=== PATIENT | male | born 1955 | race Hispanic/Latino ===

== ENCOUNTER 2023-09-11 22:07 | Emergency (ER) | payer OTHER ==
[2023-09-11 23:39] LABS: Specific Gravity 1.011 (1.005-1.030); Sqamous Epithelial None Seen /HPF (None Seen); Transitional Epithelial <5 /HPF (None Seen); Urine Bacteria <20 /HPF (<20); Urine Bilirubin NEGATIVE (Negative); Urine Blood Trace (Negative); Urine Clarity Clear (Clear); Urine Color Colorless (Yellow); Urine Culture Reflex Order NOT NEEDED; Urine Glucose NEGATIVE (Negative); Urine Ketones NEGATIVE (Negative); Urine Micro Reflex YN NO BILL MICROSCOPIC; Urine Mucus Slight /HPF (None Seen); Urine Nitrite NEGATIVE (Negative); Urine Protein NEGATIVE (Negative); Urine RBC <5 /HPF (None Seen); Urine Urobilinogen Normal (Normal); Urine WBC <5 /HPF (<5)
--- NOTE | 2023-09-11 23:42 | ER ---
Nurse's Notes [facility] Name: Pan Cai Age: 68 yrs Sex: Male : 1955 Arrival Date: 09/11/2023 Time: 22:07 Bed 6 Private MD: Diagnosis: Retention of urine, unspecified Presentation: 09/10 22:31 Chief complaint: Patient's son or daughter states: Has not been able to pee all day, in vc1 pain and feels like his " bladder is busting". Coronavirus screen: Vaccine status: Patient reports receiving the 2nd dose of the covid vaccine. plus 1 booster Client denies travel out of the [place] in the last 14 days. At this time, the client does not indicate any symptoms associated with coronavirus-19. Ebola Screen: Patient negative for fever greater than or equal to 101.5 degrees Fahrenheit, and additional compatible Ebola Virus Disease symptoms Patient denies exposure to infectious person. Patient denies travel to an Ebola-affected area in the 21 days before illness onset. No symptoms or risks identified at this time. Initial Sepsis Screen: Does the patient meet any 2 criteria? No. Patient's initial sepsis screen is negative. Does the patient have a suspected source of infection? No. Patient's initial sepsis screen is negative. Risk Assessment: Do you want to hurt yourself or someone else? Patient reports no desire to harm self or others. Onset of symptoms was September 11, 2023. Care prior to arrival: None. Activity prior to arrival: None. Mechanism of Injury: No Mechanism of Injury. Transition of care: patient was not received from another setting of care. 22:31 Method Of Arrival: Ambulatory vc1 22:31 Acuity: SIXTO 4 vc1 Triage Assessment: 22:36 General: Appears in no apparent distress. uncomfortable, slender, well groomed, well vc1 developed, well nourished, Behavior is anxious, restless. Pain: Complains of pain in suprapubic area Pain does not radiate. Pain currently is 10 out of 10 on a pain scale. Quality of pain is described as pressure, sharp, Pain began suddenly, Is continuous, Noted to be restless. EENT: No deficits noted. No signs and/or symptoms were reported regarding the EENT system. Neuro: Level of Consciousness is awake, alert, obeys commands, Oriented to person, place, time, situation, Appropriate for age. Cardiovascular: No deficits noted. Respiratory: Airway is patent Respiratory effort is even, unlabored, Respiratory pattern is regular, symmetrical. : Reports inability to void, since this morning pain in suprapubic area with urination, Pain is 10 out of 10 on a pain scale. urgency. Derm: Skin is intact, is healthy with good turgor, Skin is dry, Skin is normal, Skin temperature is warm. Historical: - Allergies: 22:34 No Known Allergies; vc1 - Home Meds: 22:34 tamsulosin 0.4 mg oral capsule [Active]; Lisinopril Oral [Active]; vc1 - PMHx: 22:34 Hypertensive disorder; enlarged prostate; vc1 - PSHx: 22:34 None; vc1 - Immunization history:: Client reports receiving the 2nd dose of the Covid vaccine, Pneumococcal vaccine is up to date. - Infectious Disease History:: Denies. - Social history:: Smoking status: Patient denies any tobacco usage or history of. Screenin:38 [facility] ED Fall Risk Assessment (Adult) History of falling in the last 3 months, vc1 including since admission No falls in past 3 months (0 pts) Confusion or Disorientation No (0 pts) Intoxicated or Sedated No (0 pts) Impaired Gait No (0 pts) Mobility Assist Device Used No (0 pt) Altered Elimination No (0 pt) Score/Fall Risk Level 0 - 2 = Low Risk Oriented to surroundings, Maintained a safe environment, Educated pt \\T\\ family on fall prevention, incl call for assistance when getting out of bed. Abuse screen: Denies threats or abuse. Nutritional screening: No deficits noted. Tuberculosis screening: No symptoms or risk factors identified. Assessment: 23:57 General: Appears in no apparent distress. Behavior is calm, cooperative. Neuro: Level kd3 of Consciousness is awake, alert, obeys commands, Oriented to person, place, time, situation. Respiratory: Airway is patent Trachea midline Respiratory effort is even, unlabored, Respiratory pattern is regular, symmetrical. Vital Signs: 22:31 Weight 65.77 kg; Height 5 ft. 5 in. ; Pain 10/10; vc1 23:43 BP 102 / 65; Pulse 74; Pulse Ox 97% ; ec2 23:57 BP 111 / 67; Pulse 88; Resp 16; Pulse Ox 98% on R/A; kd3 22:31 Body Mass Index 24.13 (65.77 kg, 165.1 cm) vc1 22:31 Pain Scale: Adult vc1 ED Course: 22:09 Patient arrived in ED. jj6 22:10 Alexei Enriquez MD is Attending Physician. ec2 22:34 Triage completed. vc1 22:39 Patient has correct armband on for positive identification. Placed in gown. Bed in low vc1 position. Adult w/ patient. 23:57 Katia Cardozo, RN is Primary Nurse. kd3 23:58 Provided Education on: Verde care . kd3 23:58 Arm band placed on. kd3 23:58 No provider procedures requiring assistance completed. Patient did not have IV access kd3 during this emergency room visit. Administered Medications: No medications were administered Medication: 23:58 VIS not applicable for this client. kd3 Outcome: 23:41 Discharge ordered by . ec2 23:58 Discharged to home ambulatory, kd3 23:58 Condition: stable 23:58 Discharge instructions given to patient, family, Instructed on discharge instructions, follow up and referral plans. Demonstrated understanding of instructions, follow-up care, 23:59 Patient left the ED. kd3 Signatures: Linn Edwards jj6 Katia Cardozo, MAURILIO THORPE kd3 Carlie Arriaga RN RN vc1 Alexei Enriquez MD MD ec2
--- NOTE | 2023-09-11 23:42 | EDPHYS ---
Physician Documentation [facility] Name: Pan Cai Age: 68 yrs Sex: Male : 1955 Arrival Date: 09/11/2023 Time: 22:07 Bed 6 Private MD: ED Physician Alexei Enriquez HPI: 09/10 22:21 This 68 yrs old Male presents to ER via Unassigned with complaints of Urinary ec2 Retention, Pelvic Pain. 22:21 Patient arrives today for evaluation of suprapubic pain and distention, states that he ec2 has had a history of enlarged prostate, state he is unable to void today. Patient reports no fevers or chills, no back pain, no nausea or vomiting.. Historical: - Allergies: 22:34 No Known Allergies; vc1 - Home Meds: 22:34 tamsulosin 0.4 mg oral capsule [Active]; Lisinopril Oral [Active]; vc1 - PMHx: 22:34 Hypertensive disorder; enlarged prostate; vc1 - PSHx: 22:34 None; vc1 - Immunization history:: Client reports receiving the 2nd dose of the Covid vaccine, Pneumococcal vaccine is up to date. - Infectious Disease History:: Denies. - Social history:: Smoking status: Patient denies any tobacco usage or history of. ROS: 22:21 Constitutional: as per hpi ec2 Exam: 22:21 Constitutional: GEN: NAD Head: atraumatic Eyes: EOMI Ears: External ears are ec2 normal. CV: regular rate LUNGS: no respiratory distress ABD: non-distended, soft, minimally tender in the suprapubic region, no guarding, not rigid. SKIN: no evidence of rashes MSK: no evidence of trauma NEURO: moves all extremities equally Vital Signs: 22:31 Weight 65.77 kg; Height 5 ft. 5 in. ; Pain 10/10; vc1 23:43 BP 102 / 65; Pulse 74; Pulse Ox 97% ; ec2 23:57 BP 111 / 67; Pulse 88; Resp 16; Pulse Ox 98% on R/A; kd3 22:31 Body Mass Index 24.13 (65.77 kg, 165.1 cm) vc1 22:31 Pain Scale: Adult vc1 MDM: 22:12 Patient medically screened. ec2 22:21 Data reviewed: vital signs. ED course: Patient arrives today for evaluation of ec2 suprapubic discomfort as well as inability to urinate. Examination remarkable for abdominal findings as noted above. Will obtain urine study, also place Verde catheter. Differential diagnosis include urinary retention, urinary tract infection, doubt kidney stone.. 23:40 ED course: Nursing with Verde catheter placed without issue. Will discharge home with ec2 leg bag. Instructed follow-up with urology. Patient is from [place] and returning in the morning. I instructed him to seek primary care and urology evaluation.. 23:41 ED course: MDM: Differential diagnosis as documented above in ED course All lab tests ec2 ordered and reviewed as documented above. . 09/10 22:21 Order name: UAM; Complete Time: 23:40 ec2 09/10 22:21 Order name: Verde Leg Bag; Complete Time: 23:57 ec2 Administered Medications: No medications were administered Disposition Summary: 09/11/23 23:41 Discharge Ordered Notes: Location: Home ec2 Condition: Stable ec2 Diagnosis - Retention of urine, unspecified ec2 Followup: ec2 - With: Private Physician - When: - Reason: Recheck today's complaints Discharge Instructions: - Discharge Summary Sheet ec2 - Acute Urinary Retention, Male, [id number] ec2 Forms: - Medication Reconciliation Form ec2 - Antibiotic Education ec2 - Prescription Opioid Use ec2 - Patient Portal Instructions ec2 - Leadership Thank You Letter ec2 Signatures: Dispatcher [employer] Carlie Fam RN RN vc1 Alexei Enriquez MD MD ec2
[2023-09-12 00:45] VITALS: BP 111/67; O2SAT 98
== END 2023-09-11 23:59 | disposition home or self-care (01) ==
LOC: ER 22:07
DX: R33.9 Retention of urine, unspecified (principal); N40.0 Benign prostatic hyperplasia without lower urinary tract symptoms
CPT/HCPCS: 81001; 99282